=== PATIENT | male | born 1985 | race Native Hawaiian/Other Pacific Islander ===

== ENCOUNTER 2020-05-05 12:20 | Emergency (ER) | payer OTHER ==
[~2020-05-05] VITALS: Ht 172.7 cm; Wt 68.0 kg
[2020-05-05 12:28] VITALS: TEMP 98.7
[2020-05-05] MEDS ORDERED: PROAIR HFA INH (12:28)
[2020-05-05 13:26] LABS: PLATELET COUNT 267 K/uL (142-355)
[2020-05-05 13:44] LABS: POTASSIUM 4.1 mmol/L (3.6-5.2)
[2020-05-05 13:46] LABS: PARTIAL THROMBOPLASTIN TIME 23.7 SECONDS (24.5-33.6)
[2020-05-05 14:33] VITALS: BP 124/69
== END 2020-05-05 14:35 | disposition home or self-care (01) ==
LOC: ED 12:20
PROVIDERS: Family Medicine
DX: J40 Bronchitis, not specified as acute or chronic (principal); R04.2 Hemoptysis; F17.220 Nicotine dependence, chewing tobacco, uncomplicated
CPT/HCPCS: 80053; 81000; 85027; 85610; 85730; 99283